=== PATIENT | female | born 1935 | race Hispanic/Latino ===

== ENCOUNTER 2018-01-30 19:29 | Emergency (ER) | payer MEDICARE, MEDICAID ==
[2018-01-30 20:00] LABS: Bilirubin Negative (Negative); Blood, Urine Large (Negative); Clarity TURBID (Clear); Glucose, Urine (Dipstick) Negative (Negative); Leukocyte Large (Negative); Nitrite Negative (Negative); Protein, Urine (Dipstick) 100 mg/dL (Neg-Trace); Specific Gravity, Urine 1.014 (1.002-1.036); Urobilinogen 0.2 mg/dL (0.2-1.0); pH, Urine 6.5 (5.0-9.0)
[2018-01-30 20:03] LABS: Bacteria/HPF 1+ HPF (None Seen); Hyaline Casts/LPF 0-3 HYALINE CAST LPF (0-3 Hyaline); Pathc Cast-AUWi Flag 0.34 (0-2.49); Squamous Epithelial 0-3 HPF (0-3)
[2018-01-30 20:04] LABS: Yeast-AUWi Flag 1282.4 (0-25.0)
[2018-01-30 20:11] LABS: Yeast-All Forms None Seen HPF (None Seen)
== END 2018-01-30 21:00 | disposition home or self-care (01) ==
LOC: ERS 19:29
DX: N39.0 Urinary tract infection, site not specified (principal); E03.9 Hypothyroidism, unspecified; F41.9 Anxiety disorder, unspecified; Z79.899 Other long term (current) drug therapy
CPT/HCPCS: 81003; 81015; 87077; 87086; 87186; 99283

== ENCOUNTER 2018-04-29 10:50 | Outpatient (CLI) | payer MEDICARE, MEDICAID | END 2018-04-29 10:51 | disposition home or self-care (01) | LOC: BICCT 10:50 | PROVIDERS: ATTEND Internal Medicine Critical Care Medicine | DX: R91.8 Other nonspecific abnormal finding of lung field (principal); R93.2 Abnormal findings on diagnostic imaging of liver and biliary tract; K83.8 Other specified diseases of biliary tract | CPT/HCPCS: 71250 ==

== ENCOUNTER 2018-06-18 10:34 | Emergency (ER) | payer MEDICARE, MEDICAID ==
[2018-06-18] MEDS ORDERED: traMADol HCl 50 MG TAB ONE (11:00)
[2018-06-18] MEDS ORDERED: Acetaminophen 500 MG TAB ONE (11:00)
[2018-06-18] MEDS ORDERED: Acetaminophen 325 MG TAB ONE (11:05)
== END 2018-06-18 11:31 | disposition home or self-care (01) ==
LOC: ERS 10:34
DX: M72.2 Plantar fascial fibromatosis (principal); E03.9 Hypothyroidism, unspecified
CPT/HCPCS: 99283

== ENCOUNTER 2018-09-25 09:56 | Emergency (ER) | payer MEDICARE, MEDICAID ==
[2018-09-25] MEDS ORDERED: Ketorolac Tromethamine 60 MG/2 ML VIAL ONE (10:48)
[2018-09-25] MEDS ORDERED: Lorazepam 2 MG/ML VIAL ONE (10:48)
[2018-09-25] MEDS ORDERED: Fentanyl 100 MCG/2 ML VIAL ONE (10:48)
--- NOTE | 2018-09-25 12:16 | RAD ---
FOUR VIEWS OF THE RIGHT ELBOW: DATE: 09/25/2018. HISTORY: Trauma. Right arm pain after a fall on 09/24/2018. FINDINGS: No obvious displaced fracture is visualized, but there is evidence of a joint effusion with elevation of both the posterior and anterior fat pads of the right elbow which suggests the possibility of a f racture. A few tiny calcific densities are seen adjacent to the wrist which may be related to degene rative changes and prior injury. Osteopenia is present. IMPRESSION: 1. No displaced fracture is visualized, but there is evidence of a joint effusion which suggests a p ossibility of a fracture involving the right elbow. Followup views of the right elbow in 4-7 days is recommended after conservative management. 2. Osteopenia and mild osteoarthritis right elbow. POS: [facility]
--- NOTE | 2018-09-25 12:20 | RAD ---
THREE VIEWS RIGHT SHOULDER: DATE: 09/25/2018. HISTORY: Right arm pain post fall on 09/24/2018. Trauma. FINDINGS: There is mild right acromioclavicular joint osteoarthritis. Irregularity of the acromion is present likely related to the degenerative changes. No fracture or dislocation is appreciated. [place] screw s overlie the lateral aspect of the right humeral head likely related to prior rotator cuff repair. Degenerative changes are seen in the visualized thoracic spine. Vascular calcification is seen in th e thoracic aorta. IMPRESSION: 1. No acute fracture or dislocation involving the right shoulder. 2. 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 3. Postsurgical changes right shoulder. POS: [facility]
== END 2018-09-25 11:50 | disposition home or self-care (01) ==
LOC: ERS 09:56
DX: S42.401A Unspecified fracture of lower end of right humerus, initial encounter for closed fracture (principal); S40.011A Contusion of right shoulder, initial encounter; K21.9 Gastro-esophageal reflux disease without esophagitis; I10 Essential (primary) hypertension; E03.9 Hypothyroidism, unspecified; F41.9 Anxiety disorder, unspecified; Z79.899 Other long term (current) drug therapy; W01.0XXA Fall on same level from slipping, tripping and stumbling without subsequent striking against object, initial encounter
CPT/HCPCS: 29105; 96372; J1885; J2060; J3010

== ENCOUNTER 2021-11-08 09:05 | Outpatient (CLI) | payer MEDICARE, MEDICAID | END 2021-11-08 09:06 | disposition home or self-care (01) | LOC: CTENTCT 09:05 | PROVIDERS: ATTEND Urology | DX: J32.9 Chronic sinusitis, unspecified (principal) | CPT/HCPCS: 70486 ==

== ENCOUNTER 2021-11-18 14:24 | Outpatient (CLI) | payer MEDICARE, MEDICAID ==
[2021-11-18 15:22] LABS: Hemoglobin 11.6 g/dL (12.0-15.5)
[2021-11-18 15:58] LABS: Anion Gap 13 mmol/L (10-20); BUN (Urea Nitrogen) 19 mg/dL (9.8-20.1); Calc. Creatinine Clearance 0 mL/min (70-130); Calcium 9.6 mg/dL (7.8-10.44); Carbon Dioxide 26 mmol/L (23-31); Chloride 105 mmol/L (98-107); Glucose 95 mg/dL (83-110); Potassium 4.4 mmol/L (3.5-5.1); Sodium 140 mmol/L (136-145)
[2021-11-19 03:09] LABS: SARS-CoV-2 PCR by NAA Not Detected (NotDetected)
== END 2021-11-18 14:25 | disposition home or self-care (01) ==
LOC: LABBT 14:24
PROVIDERS: ATTEND Specialist
DX: Z01.818 Encounter for other preprocedural examination (principal); J32.9 Chronic sinusitis, unspecified; R05.9 Cough, unspecified; R09.82 Postnasal drip; R09.81 Nasal congestion; J34.3 Hypertrophy of nasal turbinates; R06.83 Snoring; R49.0 Dysphonia; Z20.822 Contact with and (suspected) exposure to COVID-19
CPT/HCPCS: 80048; 85014; 85018; 93005; U0003; U0005; 93010

== ENCOUNTER 2021-11-21 09:37 | Day surgery (SDC) | payer MEDICARE, MEDICAID ==
[2021-11-19 13:47] VITALS: BMI 26.0
[2021-11-21] MEDS ORDERED: EPINEPHrine 1 MG/ML AMP ONE (10:14)
[2021-11-21] MEDS ORDERED: Xylocaine 1% w/ Epi 1:100K 10 ML VIAL ONE (10:14)
[2021-11-21] MEDS ORDERED: AFRIN NASAL MIST 15 ML BOT ONE ×3 (10:14→13:17)
[2021-11-21] MEDS ORDERED: Fentanyl 250 MCG/5 ML VIAL ONE ×2 (10:40→12:11)
[2021-11-21] MEDS ORDERED: Lidocaine 1% PF 5 ML VIAL ONE (11:13)
[2021-11-21] MEDS ORDERED: PHENYLEPHRINE-NS 100 MCG/ML 10 ML SYRINGE ONE (11:13)
[2021-11-21] MEDS ORDERED: Calcium Chloride 1 GM/10 ML Abboject SYRINGE ONE (11:13)
[2021-11-21] MEDS ORDERED: Dexamethasone 20 MG/5 ML VIAL ONE (11:13)
[2021-11-21] MEDS ORDERED: PROPOFOL 200 MG/20 ML VIAL ONE (11:13)
[2021-11-21] MEDS ORDERED: ePHEDrine 50 MG/ML VIAL ONE (11:13)
[2021-11-21] MEDS ORDERED: Ondansetron PF 4 MG/2 ML Vial ONE (11:13)
[2021-11-21] MEDS ORDERED: Hydrocodone-Acetamin 15 ML UDCUP ONE (12:56)
== END 2021-11-21 13:47 | disposition home or self-care (01) ==
LOC: SDC 09:37
PROVIDERS: ATTEND Specialist
PROC: 09SM0ZZ Reposition Nasal Septum, Open Approach (ICD-10-PCS; principal; 2021-11-21)
PROC: 09TL0ZZ Resection of Nasal Turbinate, Open Approach (ICD-10-PCS; 2021-11-21)
PROC: 099T8ZZ Drainage of Left Frontal Sinus, Via Natural or Artificial Opening Endoscopic (ICD-10-PCS; 2021-11-21)
PROC: 099S8ZZ Drainage of Right Frontal Sinus, Via Natural or Artificial Opening Endoscopic (ICD-10-PCS; 2021-11-21)
PROC: 09BR8ZZ Excision of Left Maxillary Sinus, Via Natural or Artificial Opening Endoscopic (ICD-10-PCS; 2021-11-21)
PROC: 09BQ8ZZ Excision of Right Maxillary Sinus, Via Natural or Artificial Opening Endoscopic (ICD-10-PCS; 2021-11-21)
PROC: 09TV8ZZ Resection of Left Ethmoid Sinus, Via Natural or Artificial Opening Endoscopic (ICD-10-PCS; 2021-11-21)
PROC: 09TU8ZZ Resection of Right Ethmoid Sinus, Via Natural or Artificial Opening Endoscopic (ICD-10-PCS; 2021-11-21)
DX: J32.9 Chronic sinusitis, unspecified (principal); G89.29 Other chronic pain; R51.9 Headache, unspecified; J34.2 Deviated nasal septum; J34.3 Hypertrophy of nasal turbinates; M19.90 Unspecified osteoarthritis, unspecified site; Z79.899 Other long term (current) drug therapy; Z88.5 Allergy status to narcotic agent
CPT/HCPCS: J0171; J1100; J2405; J2704; J3010; J3490